=== PATIENT | female | born 2000 | race Hispanic/Latino ===

== ENCOUNTER 2022-09-22 21:05 | Emergency (ER) | payer SELFPAY ==
[2022-09-22] MEDS ORDERED: Ondansetron PF 4 MG/2 ML Vial ONE (21:31)
[2022-09-22] MEDS ORDERED: Morphine 4 MG/ML VIAL ONE (21:31)
[2022-09-22] MEDS ORDERED: levETIRAcetam in NS 1,500 MG in Premix Bag 1 BAG IVPB SCH (21:45)
== END 2022-09-23 00:50 | disposition home or self-care (01) ==
LOC: CSHERS 21:05
DX: S46.912A Strain of unspecified muscle, fascia and tendon at shoulder and upper arm level, left arm, initial encounter (principal); G40.509 Epileptic seizures related to external causes, not intractable, without status epilepticus; X58.XXXA Exposure to other specified factors, initial encounter
CPT/HCPCS: 70450; 96365; 96375; J1953; J2270; J2405